=== PATIENT | male | born 1975 | race Caucasian/White ===

== ENCOUNTER 2017-08-22 09:02 | Emergency (ER) | END 2017-08-22 13:14 | disposition home or self-care (01) ==

== ENCOUNTER 2017-12-23 23:29 | Emergency (ER) | END 2017-12-24 02:55 | disposition home or self-care (01) ==

== ENCOUNTER 2017-12-27 09:21 | Inpatient (IN) | END 2017-12-28 15:26 | disposition home or self-care (01) | DRG 379 ==